=== PATIENT | female | born 1955 | race Caucasian/White ===

== ENCOUNTER 2024-07-05 08:06 | Emergency (ER) | payer OTHER, SELFPAY ==
[2024-07-05 08:34] VITALS: BP 158/81; PULSE 70; RESP 18; TEMP 36.5; O2SAT 96; BMI 27.4
--- NOTE | 2024-07-05 09:27 | CRLHL7_ITS ---
For Patients: As a result of the Century Cures Act, medical imaging exams and procedure reports are released immediately into your electronic medical record. You may view this report before your referring provider. If you have questions, please contact your health care provider. INDICATION: leg pain, recent COVID TECHNIQUE: Venous duplex ultrasound of the left lower extremity utilizing compression with eller-scale, color Doppler, and spectral Doppler imaging. COMPARISON: None FINDINGS: There is no sonographic evidence of deep vein thrombosis in the left common femoral, deep femoral, superficial femoral, popliteal, posterior tibial, peroneal, or contralateral common femoral veins. There is no visualized superficial vein thrombosis. The soft tissues are unremarkable with no abnormalities to area of reported pain. IMPRESSION: No deep vein thrombosis in the left lower extremity. Dictated by Abel Good MD @ 07/05/2024 10:21:27 AM (Electronically Signed)
--- NOTE | 2024-07-05 09:27 | CRLHL7_ITS ---
For Patients: As a result of the Cures Act, medical imaging exams and procedure reports are released immediately into your electronic medical record. You may view this report before your referring provider. If you have questions, please contact your health care provider. Indication: Pain. No injury. Technique: An AP view of the pelvis was obtained as well as AP and lateral views of the left hip Comparison: None Findings: Degenerative changes of the spine visualized lower lumbar spine. Sacrum, hemipelvis and left hip joint appear normal. Impression: Degenerative changes of the limited visualized lower lumbar spine. Pelvis and left hip joint unremarkable by plain film Dictated by Alfonzo Gutierrez MD @ 07/05/2024 10:20:17 AM (Electronically Signed)
--- NOTE | 2024-07-05 10:59 | ED_ITS ---
HPI - General Adult General Chief complaint: Extremity Pain/Injury, Lower Stated complaint: LT hip leg pain Time Seen by Provider: 07/05/24 09:27 History of Present Illness HPI narrative: 69-year-old pleasant female with a past medical history of TBI, scoliosis with Heredia rods, recent coronavirus infection (had infection about 3 weeks ago, now improving) presenting to the ER today with her with concern of pain involving her left leg. She notes that when she had COVID she was quite run down and tired and spent several days laying in bed. She has been improving from COVID and overall feeling better and has been more active. Since last week she has had some pain that started 1st in her left posterior buttock and has been getting worse as time goes on. The pain is located in her left lateral hip and sometimes in her posterior buttock and sometimes radiates down the front of her left thigh and down into the front of her left knee. No pain down into her ankle or foot. The she notes that she was able to walk about 6 blocks couple of days ago and things seem to loosen up that she walk but pain has gotten worse for the past couple days. She has not had any fever. No bruising or redness or discoloration of her leg. She has not noted any swelling of the leg. However, she is concerned that she might have a DVT since she knows coronavirus can be associated with thrombophilia and she recalls having a lot of immobility while she was sick. She also has a history of some low back pain due to scoliosis and had Heredia rods surgically implanted in the . She does not know if her rods are MR compatible or not. She has no recent falls or injury. No recollection of twisting her leg or knee or hip. No other new activities or bending or twisting or lifting. Related Data Previous Rx's ?Medication ?Instructions ?Recorded cyclobenzaprine 5 mg tablet 5 mg PO TID PRN muscle spasm #10 07/05/24 tabs hydrocodone 5 mg-acetaminophen 325 1 tab PO Q6H PRN pain #10 tabs 07/05/24 mg tablet Allergies Allergy/AdvReac Type Severity Reaction Status Date / Time Penicillins Allergy Intermediate Anaphylaxis Verified 07/05/24 08:33 Milk Containing Products AdvReac Intermediate Congested Verified 07/05/24 08:33 (Dairy) Exam Narrative: Exam Narrative: Constitutional: Appears well-developed and well-nourished. Alert. Conversant. Non toxic. attentively at her side HENT: Head: Atraumatic. Nose: Nose normal. Mouth/Throat: Oral mucosa is clear and moist. no trismus. Pharynx normal. Eyes: Conjunctivae normal. EOM normal. Pupils equal, round, and reactive to light. No scleral icterus. Neck: Normal range of motion. Neck supple. No tracheal deviation present. Cardiovascular: Normal rate, regular rhythm. No gallop. No friction rub. No murmur heard. Symmetric PT and DP artery pulses Pulmonary/Chest: Effort normal. No stridor. No respiratory distress. No wheezes. No rales. No rhonchi . Abdominal: Soft. No distension. No mass. No tenderness. No rebound. No guarding. Musculoskeletal: She has surgical incision on her midline back. No midline lumbar or thoracic tenderness. Pelvis is stable. No posterior tenderness. RUE: Normal range of motion. No tenderness. No deformity LUE: Normal range of motion. No tenderness. No deformity RLE: Normal range of motion. No edema. No tenderness. No deformity LLE: No deformity or foreshortening or rotation. She is very tender over the greater trochanter on the lateral side of her left hip. She is able to actively flex up to about 90? but notes pain in the lateral hip and posterior buttock when she flexes her hip. Pain is dramatically exacerbated by internal rotation of the hip and moderately exacerbated by external rotation. No pain or tenderness in the anterior thigh, quadriceps, posterior thigh, hamstring. Iliotibial band is nontender. No tenderness of the knee. Normal knee flexion and extension. No ligamentous laxity in the knee. Calf, ankle, lower leg, foot are normal. There is no edema. No erythema. Normal pink skin with brisk cap refill. Lymph: No inguinal adenopathy. Neurological: Alert and oriented to person, place, and time. Normal strength. CN II-VII intact. No sensory deficit. GCS eye subscore is 4. GCS verbal subscore is 5. GCS motor subscore is 6. Normal coordination Sensory: Normal light touch sensation bilaterally on the anteromedial thigh (L3), medial malleolus (L4), dorsal first web space (L5), lateral malleolus (S1). Strength: 5/5 strength hip flexors (L3) on the rig ht and left 5/5 strength in the quadriceps (L4) on t he right and left 5/5 strength in the tibialis anterior 5/5 strength in the EHL (L5) on the righ t and left 5/5 strength in the gastrocnemius (S1) o n the right and left 5/5 strength in the hamstring on the rig ht and left DTRs: symmetric in the patella (2/4) and in the achilles tendons. Negative straight leg raise. Skin: Skin is warm and dry. No rash noted. No pallor. Normal capillary refill. Psychiatric: Normal mood. Normal affect. Const: Vital Signs, click to edit/add: Vital Signs - 24 hr 07/05/24 08:34 Temperature 97.7 F Pulse Rate [Pulse Oximeter] 70 Respiratory Rate 18 Blood Pressure [Ri ght Upper Arm] 158/81 H Pulse Oximetry 96 Oxygen Delivery Me thod Room Air Course Vital Signs Vital signs: Initial Vital Signs Temperature 97.7 F 07/05/24 08:34 Temperature Source Temporal Artery Scan 07/05/24 08:34 Pulse Rate 70 07/05/24 08:34 Respiratory Rate 18 07/05/24 08:34 Blood Pressure 158/81 H 07/05/24 08:34 Blood Pressure Mean 106 H 07/05/24 08:34 Pulse Oximetry 96 07/05/24 08:34 Oxygen Delivery Method Room Air 07/05/24 08:34 Vital Signs Temperature 97.7 F 07/05/24 08:34 Pulse Rate 70 07/05/24 08:34 Respiratory Rate 18 07/05/24 08:34 Blood Pressure 158/81 H 07/05/24 08:34 Pulse Oximetry 96 07/05/24 08:34 Oxygen Delivery Method Room Air 07/05/24 08:34 Temperature 97.7 F 07/05/24 08:34 Pulse Rate 70 07/05/24 08:34 Respiratory Rate 18 07/05/24 08:34 Blood Pressure 158/81 H 07/05/24 08:34 Pulse Oximetry 96 07/05/24 08:34 Oxygen Delivery Method Room Air 07/05/24 08:34 Medical Decision Making MDM Narrative Medical decision making narrative: Pleasant 69-year-old female with recent coronavirus infection presenting to the ER today with atraumatic pain affecting her left hip, left thigh, left leg. She was most concerned about possible DVT in the left leg. On my exam she had no signs of edema, ecchymosis, swelling, or erythema that would typically course with DVT. Low pretest probability. Given the patient's level of concern we did obtain a DVT ultrasound and it is fortunately negative for DVT. She has strong distal pulses and normal cap refill. No signs of acute limb ischemia or vascular catastrophe. X-ray of left hip is negative for any fracture or arthritic change in the hip joint itself. No evidence for any knee injury or knee ligament injury. Differential would include lumbar radiculopathy or sciatica. She does have a history of back problems and scoliosis with Heredia rods. However she has a negative straight leg raise and no dermatomal numbness or weakness. At this point emergent MRI not indicated. In any case with her Heredia rods, she is not sure that her she would be able to have an MRI (apparently had an F MRI related to her previous TBI which went okay, but she does not know if she has ferrous metal in her back or not. On my exam she does have tenderness over the greater trochanter of the hip and hip internal and external rotation and flexion reproduces her pain. I suspect that the most likely cause of her pain is actually a problem with the hip bursa or hip joint causing referred pain down the anterior thigh. Will treat her with nonsteroidal anti-inflammatories (which she already has at home) and had Flexeril and Whittier if needed for temporary additional pain relief. She set up with an outpatient follow-up appointment in the ortho clinic next week. She will follow-up with ortho for re-evaluation and if persistent symptoms, may require further interventions such as cortisone injection. She plans to travel to [place] the and next week and is glad to have her appointment set up for ortho early next week. Precautions for return to the ER reviewed. Imaging Data XR hip: Attestation: I have reviewed the pertinent imaging results. Radiologist's impression: Impression: Degenerative changes of the limited visualized lower lumbar spine. Pelvis and left hip joint unremarkable by plain film US venous LLE: Attestation: I have reviewed the pertinent imaging results. Radiologist's impression: IMPRESSION: No deep vein thrombosis in the left lower extremity. Discharge Plan Discharge Clinical Impression: Left leg pain, Bursitis, trochanteric Patient Disposition: Home, Self-Care Condition: Stable Instructions: Hip Bursitis (ED), Leg Pain (ED) Additional Instructions: Please follow up with the [facility] next week for a recheck. If you need to reschedule your appointment you can call [phone] Use anti-inflammatories to help treat your leg pain 1st. You can use the prescription pain killer (Wh[place]) or the muscle relaxer (Flexeril) if needed. Use caution with these medications because they both cause dizziness, drowsiness, unsteady gait, and can be addictive. If you have worsening pain, numbness or weakness in your legs, or any other problems, please come back to the ER to be rechecked. Prescriptions: New hydrocodone-acetaminophen 5-325 mg tablet 1 tab PO Q6H PRN (Reason: pain) Qty: 10 0RF cyclobenzaprine 5 mg tablet 5 mg PO TID PRN (Reason: muscle spasm) Qty: 10 0RF Follow Up/Referrals: Dina Gaines PA-C [Primary Care Provider] - Stand Alone Forms: MyHealth Info Instructions
== END 2024-07-05 11:24 | disposition home or self-care (01) ==
PROVIDERS: Emergency Provider Emergency Medicine; PCP Physician Assistant Medical
DX: M70.62 Trochanteric bursitis, left hip (principal); M79.605 Pain in left leg
CPT/HCPCS: 73502; 93971; 99283; 99284

== ENCOUNTER 2024-08-13 17:14 | Outpatient (CLI) | payer OTHER, SELFPAY ==
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
== END 2024-08-13 17:15 | disposition home or self-care (01) ==
LOC: NFLDUCREF 17:15
PROVIDERS: PCP Physician Assistant Medical; Visit Provider Nurse Practitioner Family
DX: R39.15 Urgency of urination (principal); N30.00 Acute cystitis without hematuria
CPT/HCPCS: 87086